=== PATIENT | male | born 1990 | race Caucasian/White ===

== ENCOUNTER 2016-07-15 11:40 | Emergency (ER) | payer OTHER ==
[2016-07-15] MEDS ORDERED: PROPARACAINE 0.5% OPHTH DROPS 15 ML BTL LEFT EYE STA (12:57)
--- NOTE | 2016-07-15 12:59 | ED ---
General Adult HPI - General Chief complaint: Eye Problems Stated complaint: FB left eye Time Seen by Provider: 07/15/16 12:51 Source: patient, RN notes reviewed Mode of arrival: ambulatory Limitations: no limitations - History of Present Illness Initial comments: Patient 25-year-old male who presents emergency room today with chief complaint of foreign body to the left eye. He does admit that 3 days ago he was working [place] house [place] and a stone came down hitting the eye and believes it started with. He states he had his brother looked into his eye was able to see a small piece of it. Patient denies any other complaints or symptoms. States tetanus is up-to-date. - Related Data Home Medications Medication Instructions Recorded Confirmed Albuterol Inhaler [Ventolin Hfa 1 - 2 puff INHALATION RT-Q6H PRN 11/24/15 Inhaler] Ibuprofen [Motrin] 600 - 800 mg PO Q6H PRN 11/24/15 11/24/15 Previous Rx's Medication Instructions Recorded Mupirocin 2% Oint [Bactroban Oint] 1 applic TOPICAL TID #1 gm 11/24/15 Sulfamethoxazole/Trimethoprim 1 each PO Q12H 10 Days 11/24/15 [Bactrim DS 800-160 mg] predniSONE 40 mg PO DAILY 3 Days 11/24/15 Tobramycin 0.3% Ophth Soln [Tobrex 1 - 2 drop LEFT EYE QID 7 Days 07/15/16 0.3% Ophth Soln] Allergies Allergy/AdvReac Type Severity Reaction Status Date / Time No Known Allergies Allergy Verified 07/15/16 11:47 Review of Systems ROS Statement: Those systems with pertinent positive or pertinent negative responses have been documented in the HPI. ROS Other: All systems not noted in ROS Statement are negative. Past Medical History Past Medical History: Asthma Additional Past Medical History / Comment(s): low immune History of Any Multi-Drug Resistant Organisms: None Reported Additional Past Surgical History / Comment(s): facial surgery as a child Past Psychological History: No Psychological Hx Reported Smoking Status: Current every day smoker Past Alcohol Use History: Occasional Past Drug Use History: Marijuana General Exam - General Exam Comments Initial Comments: General: The patient is awake and alert, in no distress, and does not appear acutely ill. Eye: Pupils are equal, round and reactive to light, extra-ocular movements are intact. No nystagmus. There is normal conjunctiva bilaterally. No signs of icterus. Ears, nose, mouth and throat: There are moist mucous membranes and no oral lesions. Neck: The neck is supple, there is no tenderness or JVD. Cardiovascular: There is a regular rate and rhythm. No murmur, rub or gallop is appreciated. Respiratory: Lungs are clear to auscultation, respirations are non-labored, breath sounds are equal. No wheezes, stridor, rales, or rhonchi. Musculoskeletal: Normal ROM, no tenderness. Strength 5/5. Sensation intact. Pulses equal bilaterally 2+. Neurological: A&O x 3. CN II-XII intact, There are no obvious motor or sensory deficits. Coordination appears grossly intact. Speech is normal. Skin: Skin is warm and dry and no rashes or lesions are noted. Psychiatric: Cooperative, appropriate mood & affect, normal judgment. Limitations: no limitations Course Vital Signs 07/15/16 11:43 Temperature 99.0 F Pulse Rate 82 Respiratory 18 Rate Blood Pressure 140/82 O2 Sat by Pulse 100 Oximetry Procedures - Procedures Initial comment: Patient's left eye was anesthetized locally with proparacaine this relieve his symptoms. Lids were everted no sign of foreign body underneath the lids were swept with cotton tip. There is a foreign body at the 5 o'clock position of the left eye. Contacted used to try to remove was unable to did use [place] brush to remove foreign body and rust ring. Patient tolerated well. Medical Decision Making - Medical Decision Making Left eye foreign body was removed here in the emergency room. He is advised follow-up with dry kiln feeder symptoms do not completely resolve the next 2 days but he will be started on antibiotics here. Advised return for any other concerns. Disposition Clinical Impression: Foreign body, eye Disposition: HOME SELF-CARE Condition: Good Instructions: Eye Foreign Body (ED) Additional Instructions: Please continue with artificial tears for comfort and use antibiotic drops as prescribed. Please use Tylenol/ibuprofen for pain as needed. Please follow-up with dry kiln feeder over the next 2 days symptoms have not completely resolved. Please return for any other concerns. Prescriptions: Tobramycin 0.3% Ophth Soln [Tobrex 0.3% Ophth Soln] 1 - 2 drop LEFT EYE QID 7 Days Referrals: None,Stated [Primary Care Provider] - 1-2 days Siddhartha Peres MD [STAFF PHYSICIAN] - 1-2 days Time of Disposition: 13:17
[2016-07-15 13:38] VITALS: BP 144/80; PULSE 80; RESP 16; TEMP 98.7
== END 2016-07-15 13:39 | disposition home or self-care (01) ==
LOC: EC 11:40
DX: T15.92XA Foreign body on external eye, part unspecified, left eye, initial encounter (principal); F17.200 Nicotine dependence, unspecified, uncomplicated; W22.8XXA Striking against or struck by other objects, initial encounter
CPT/HCPCS: 67938; 99283

== ENCOUNTER 2017-09-07 09:46 | Emergency (ER) | payer OTHER ==
[2017-09-07 10:24] VITALS: RESP 18
[2017-09-07] MEDS ORDERED: ONDANSETRON 4 MG/2 ML VIAL IVP STA (10:33)
[2017-09-07] MEDS ORDERED: diphenhydrAMINE 50 MG/ML 1 ML VIAL IVP STA (10:33)
[2017-09-07] MEDS ORDERED: SODIUM CHLORIDE 0.9% 1,000 ML IV STA ×2 (10:33→13:40)
[2017-09-07] MEDS ORDERED: MAG HYDROX/AL HYDROX/SIMETH 30 ML, HYOSCYAMINE ELIXIR 10 ML, CIMETIDINE HCL 300 MG, LID... PO STA ×4 (10:35)
--- NOTE | 2017-09-07 10:39 | ED ---
General Adult HPI - General Chief complaint: Abdominal Pain Stated complaint: VOMITING, SHAKING, POSS DEHYDRATION Time Seen by Provider: 09/07/17 10:26 Source: patient, RN notes reviewed Mode of arrival: wheelchair Limitations: no limitations - History of Present Illness Initial comments: 26-year-old male presents to the emergency department for a chief complaint of abdominal pain 3 days. Patient states he has had lower abdominal pain as well as left upper quadrant abdominal pain. Patient states pain also radiates to the back. Patient states he has been vomiting multiple times per day. Patient states he now feels dehydrated and dizzy. Patient denies any diarrhea. Patient states he ate a peanut butter and jelly sandwich morning thinking it would help but it did not. Patient was able to keep it down. Patient denies any pain with urination. Patient denies any medical history besides for asthma. Denies any abdominal surgeries. Patient has no other complaints at this time including shortness of breath, chest pain, headache, or visual changes. - Related Data Home Medications Medication Instructions Recorded Confirmed Ibuprofen [Motrin] 2,000 mg PO Q6H PRN 11/24/15 09/07/17 Previous Rx's Medication Instructions Recorded Ondansetron [Zofran ODT] 4 mg PO Q8HR PRN #15 tab 09/07/17 Allergies Allergy/AdvReac Type Severity Reaction Status Date / Time hydrocodone AdvReac Nausea & Verified 09/07/17 11:05 Vomiting Review of Systems ROS Statement: Those systems with pertinent positive or pertinent negative responses have been documented in the HPI. ROS Other: All systems not noted in ROS Statement are negative. Past Medical History Past Medical History: Asthma Additional Past Medical History / Comment(s): low immune History of Any Multi-Drug Resistant Organisms: None Reported Additional Past Surgical History / Comment(s): facial surgery as a child Past Psychological History: No Psychological Hx Reported Smoking Status: Current every day smoker Past Alcohol Use History: Occasional Past Drug Use History: Marijuana General Exam Limitations: no limitations General appearance: alert, anxious (laying in bed, no distress, anxious appearing) Head exam: Present: atraumatic, normocephalic, normal inspection Eye exam: Present: normal appearance. Absent: scleral icterus, conjunctival injection ENT exam: Present: normal exam, normal oropharynx, mucous membranes moist Neck exam: Present: normal inspection, full ROM. Absent: tenderness, meningismus, lymphadenopathy Respiratory exam: Present: normal lung sounds bilaterally. Absent: respiratory distress, wheezes, rales, rhonchi, stridor Cardiovascular Exam: Present: regular rate, normal rhythm, normal heart sounds. Absent: systolic murmur, diastolic murmur, rubs, gallop, clicks GI/Abdominal exam: Present: soft, tenderness (RLQ, epigastric, LUQ tenderess), guarding, normal bowel sounds. Absent: distended, rebound, rigid Neurological exam: Present: alert, oriented X3, CN II-XII intact Psychiatric exam: Present: normal affect, normal mood Skin exam: Present: warm, dry, intact, normal color. Absent: rash Course Vital Signs 09/07/17 09/07/17 10:20 11:29 Temperature 97.8 F 97.1 F L Pulse Rate 98 64 Respiratory 18 18 Rate Blood Pressure 138/87 144/84 O2 Sat by Pulse 99 100 Oximetry Medical Decision Making - Medical Decision Making 26-year-old male says to the emergency determine for chief complaint of abdominal pain and vomiting 3 days. Tenderness in the right lower quadrant as well as left upper quadrant and epigastric area. CBC unremarkable. CMP shows patient likely dehydrated with a creatinine of 1.6. CT shows borderline liver size with prominent fluid-filled small bowel loops in the stool in the right side of the colon which is likely enteritis. Patient given 2 L in the emergency department. Patient was also given Zofran and is feeling much better. At this time patient has been tolerating oral intake at home. He is comfortable going home and increasing fluid intake. He will be given Zofran prescription. Patient aware he is to return to the emergency department if he has any worsening symptoms. Otherwise he will follow-up with primary care in 1- 2 days. - Lab Data Result diagrams: 09/07/17 10:19 09/07/17 10:19 Lab Results 09/07/17 09/07/17 09/07/17 Range/Units 10:19 10:19 12:31 WBC 12.3 H (3.8-10.6) k/uL RBC 5.60 (4.30-5.90) m/uL Hgb 16.9 (13.0-17.5) gm/dL Hct 48.5 (39.0-53.0) % MCV 86.6 (80.0-100.0) fL MCH 30.1 (25.0-35.0) pg MCHC 34.8 (31.0-37.0) g/dL RDW 13.5 (11.5-15.5) % Plt Count 318 (150-450) k/uL Neutrophils % 78 % Lymphocytes % 15 % Monocytes % 6 % Eosinophils % 1 % Basophils % 0 % Neutrophils # 9.5 H (1.3-7.7) k/uL Lymphocytes # 1.8 (1.0-4.8) k/uL Monocytes # 0.7 (0-1.0) k/uL Eosinophils # 0.1 (0-0.7) k/uL Basophils # 0.0 (0-0.2) k/uL Sodium 134 L (137-145) mmol/L Potassium 4.8 (3.5-5.1) mmol/L Chloride 98 (98-107) mmol/L Carbon Dioxide 21 L (22-30) mmol/L Anion Gap 15 mmol/L BUN 40 H (9-20) mg/dL Creatinine 1.60 H (0.66-1.25) mg/dL Est GFR (CKD-EPI)AfAm 68 (>60 ml/min/1.73 sqM) Est GFR (CKD-EPI)NonAf 59 (>60 ml/min/1.73 sqM) Glucose 95 (74-99) mg/dL Calcium 10.6 H (8.4-10.2) mg/dL Total Bilirubin 1.1 (0.2-1.3) mg/dL AST 65 H (17-59) U/L ALT 49 (21-72) U/L Alkaline Phosphatase 59 (38-126) U/L Total Protein 8.2 (6.3-8.2) g/dL Albumin 5.2 H (3.5-5.0) g/dL Amylase 61 (30-110) U/L Lipase 59 (23-300) U/L Urine Color Yellow Urine Appearance Clear (Clear) Urine pH 6.0 (5.0-8.0) Ur Specific [place] >1.050 H (1.001-1.035) Urine Protein Trace H (Negative) Urine Glucose (UA) Negative (Negative) Urine Ketones 2+ H (Negative) Urine Blood Negative (Negative) Urine Nitrite Negative (Negative) Urine Bilirubin Negative (Negative) Urine Urobilinogen <2.0 (<2.0) mg/dL Ur Leukocyte Esterase Negative (Negative) Disposition Clinical Impression: Gastroenteritis, Abdominal pain Disposition: HOME SELF-CARE Condition: Good Instructions: Abdominal Pain (ED) Additional Instructions: Please take Zofran for nausea. Please be sure to drink plenty of fluids. Follow up with primary care in 1-2 days. Return to the emergency department if you have any worsening symptoms Prescriptions: Ondansetron [Zofran ODT] 4 mg PO Q8HR PRN #15 tab PRN Reason: Nausea Is patient prescribed a controlled substance at d/c from ED?: No Referrals: Hank Mehta MD [STAFF PHYSICIAN] - 1-2 days Time of Disposition: 13:46
[2017-09-07 11:11] LABS: Basophils % (A) 0 %; Eosinophils # (A) 0.1 k/uL (0-0.7); Eosinophils % (A) 1 %; HCT 48.5 % (39.0-53.0); HGB 16.9 gm/dL (13.0-17.5); Lymphocytes # (A) 1.8 k/uL (1.0-4.8); Lymphocytes % (A) 15 %; MCH 30.1 pg (25.0-35.0); MCHC 34.8 g/dL (31.0-37.0); MCV 86.6 fL (80.0-100.0); Mean Platelet Volume 7.6; Monocytes # (A) 0.7 k/uL (0-1.0); Monocytes % (A) 6 %; Neutrophils # (A) 9.5 k/uL (1.3-7.7); Neutrophils % (A) 78 %; Platelet Count 318 k/uL (150-450); RDW 13.5 % (11.5-15.5); WBC 12.3 k/uL (3.8-10.6)
[2017-09-07 11:24] LABS: Albumin 5.2 g/dL (3.5-5.0); Calcium 10.6 mg/dL (8.4-10.2); Potassium 4.8 mmol/L (3.5-5.1); Total Bilirubin 1.1 mg/dL (0.2-1.3); Total Protein 8.2 g/dL (6.3-8.2)
[2017-09-07 12:34] LABS: Appearance,Urine Clear (Clear); Bilirubin,Urine Negative (Negative); Blood,Urine Negative (Negative); Color,Urine Yellow; Glucose,Urine (UA) Negative (Negative); Ketones,Urine 2+ (Negative); Leukocyte Esterase,Urine Negative (Negative); Nitrite,Urine Negative (Negative); Protein,Urine Trace (Negative); Urobilinogen,Urine <2.0 mg/dL (<2.0)
[2017-09-07 12:55] LABS: Specific Gravity,Urine >1.050 (1.001-1.035)
--- NOTE | 2017-09-07 13:17 | CT ---
EXAMINATION TYPE: CT abdomen pelvis w con DATE OF EXAM: 09/07/2017 COMPARISON: 03/09/2015 HISTORY: 26-year-old male with abdominal pain, vomiting, shaking, possible dehydration TECHNIQUE: Contiguous axial scanning of the abdomen and pelvis following administration of 100 ml Iso maxi 300 IV contrast. Delayed images through the kidneys and coronal/sagittal reconstructions perform ed. CT DLP: 965 mGycm Automated exposure control for dose reduction was used. FINDINGS: The heart is normal size without pericardial effusion. Lung bases clear without pleural effusion. Liver borderline enlarged measuring 17.8 cm craniocaudal. There may be some underlying fatty infiltra tion. No focal liver lesion seen. Gallbladder, adrenal glands, kidneys, spleen, and pancreas show no gross abnormal body. No dilated small bowel, free fluid, or free air. Scattered nonenlarged mesenteric lymph nodes. Simila r borderline sized in the right lower quadrant measuring 6 mm. Some prominent fluid filled small bowel loops throughout the abdomen and in the pelvis. There is also liquid stool in the right side of the colon. No significant stool burden. No pericolonic inflammator y change. Normal caliber appendix. Mild circumferential bladder wall thickening. No abnormal fluid collection the pelvis or pelvic lymph adenopathy. Bones: No osseous destructive process. IMPRESSION: 1. BORDERLINE LIVER SIZE (17.8 CM). SUSPECT UNDERLYING FATTY INFILTRATION. 2. SOME PROMINENT FLUID-FILLED SMALL BOWEL LOOPS IN THE STOOL IN THE RIGHT SIDE OF THE COLON. CORRELA TE FOR ENTERITIS. 3. MILD CIRCUMFERENTIAL BLADDER WALL THICKENING. CORRELATE TO EXCLUDE CYSTITIS.
[2017-09-07 14:49] VITALS: BP 134/82; PULSE 69; TEMP 98.2
== END 2017-09-07 14:50 | disposition home or self-care (01) ==
LOC: EC 09:46
DX: K52.9 Noninfective gastroenteritis and colitis, unspecified (principal); M54.9 Dorsalgia, unspecified; F17.200 Nicotine dependence, unspecified, uncomplicated; Z88.5 Allergy status to narcotic agent
CPT/HCPCS: 36415; 80053; 82150; 83690; 85025; 81003; 74177; 99284; 96374; 96375; 96361 ×2; J1200; J2405; Q9967

== ENCOUNTER 2022-05-14 08:23 | Emergency (ER) | payer OTHER ==
[2022-05-14 08:27] VITALS: BP 140/84; PULSE 66; RESP 20; TEMP 98.5
[2022-05-14] MEDS ORDERED: ACET/COD 300 MG/30 MG STARTER PACK 6 TAB BTL PO STA (08:34)
[2022-05-14] MEDS ORDERED: AMOXIC-POT CLAV 875MG STARTER PACK 2 TAB BTL PO STA (08:35)
--- NOTE | 2022-05-14 08:36 | ED ---
ENT HPI - General Chief complaint: Dental/Oral Stated complaint: Tooth pain Time Seen by Provider: 05/14/22 08:29 Source: patient, RN notes reviewed Mode of arrival: ambulatory Limitations: no limitations - History of Present Illness Initial comments: This a 31-year-old male presents emergency Department chief complaint left lower abdominal pain. Patient states he had a piece of the tooth break off. Patient states she does have very poor dentition. States pain is unbearable today's had a history of dental infections also. Patient only ALLERGY is hydrocodone. Patient denies any difficulty swallowing no fevers chills no other associated symptoms. - Related Data Home Medications Medication Instructions Recorded Confirmed Ibuprofen [Motrin] 2,000 mg PO Q6H PRN 11/24/15 09/07/17 Previous Rx's Medication Instructions Recorded Ondansetron [Zofran ODT] 4 mg PO Q8HR PRN #15 tab 09/07/17 Amoxic-Pot Clav 875-125Mg 1 tab PO Q12HR #20 tab 05/14/22 [Augmentin 875-125] Ibuprofen [Motrin] 600 mg PO Q8HR PRN #20 tab 05/14/22 Allergies Allergy/AdvReac Type Severity Reaction Status Date / Time hydrocodone AdvReac Nausea & Verified 05/14/22 08:27 Vomiting Review of Systems ROS Statement: Those systems with pertinent positive or pertinent negative responses have been documented in the HPI. ROS Other: All systems not noted in ROS Statement are negative. Past Medical History Past Medical History: Asthma Additional Past Medical History / Comment(s): low immune History of Any Multi-Drug Resistant Organisms: None Reported Additional Past Surgical History / Comment(s): facial surgery as a child Past Psychological History: No Psychological Hx Reported Smoking Status: Current every day smoker Past Alcohol Use History: Occasional Past Drug Use History: Marijuana General Exam Limitations: no limitations General appearance: alert, in no apparent distress Head exam: Present: atraumatic, normocephalic, normal inspection Eye exam: Present: normal appearance, PERRL, EOMI. Absent: scleral icterus, conjunctival injection, periorbital swelling ENT exam: Present: mucous membranes moist, TM's normal bilaterally, normal external ear exam. Absent: normal oropharynx (Edentulous, there is dental fracture left lower there is mild swelling, mild erythema no drainable abscess.) Neck exam: Present: normal inspection, full ROM. Absent: tenderness, meningismus, lymphadenopathy Respiratory exam: Present: normal lung sounds bilaterally. Absent: respiratory distress, wheezes, rales, rhonchi, stridor Cardiovascular Exam: Present: regular rate, normal rhythm, normal heart sounds. Absent: systolic murmur, diastolic murmur, rubs, gallop, clicks Course Vital Signs 05/14/22 08:25 Temperature 98.5 F Pulse Rate 66 Respiratory 20 Rate Blood Pressure 140/84 O2 Sat by Pulse 99 Oximetry Medical Decision Making - Medical Decision Making Was pt. sent in by a medical professional or institution (, TEA, LOCATOR, urgent care, hospital, or [facility]...) When possible be specific @ -No Did you speak to anyone other than the patient for history (EMS, parent, family, police, friend...)? What history was obtained from this source @ -No Did you review nursing and triage notes (agree or disagree)? Why? @ -I reviewed and agree with nursing and triage notes Were old charts reviewed (outside hosp., previous admission, EMS record, old EKG, old radiological studies, urgent care reports/EKG's, [facility] records)? Report findings @ -No old charts were reviewed Differential Diagnosis (chest pain, altered mental status, abdominal pain women, abdominal pain men, vaginal bleeding, weakness, fever, dyspnea, syncope, headache, dizziness, GI bleed, back pain, seizure, CVA, palpatations, mental health, musculoskeletal)? @ -[Dental infection, dental fracture, dental caries, dental abscess EKG interpreted by me (3pts min.). @ -None X-rays interpreted by me (1pt min.). @ -None done CT interpreted by me (1pt min.). @ -None done U/S interpreted by me (1pt. min.). @ -None done What testing was considered but not performed or refused? (CT, X-rays, U/S, labs)? Why? @ -None What meds were considered but not given or refused? Why? @ -None Did you discuss the management of the patient with other professionals (professionals i.e. TEA Goznalez, LOCATOR, lab, RT, psych nurse, social security specialist, customer program specialist, teacher, cavalry officer, skilled nursing case manager)? Give summary @ -No Was smoking cessation discussed for >3mins.? @ -No Was critical care preformed (if so, how long)? @ -No Were there social determinants of health that impacted care today? How? (Homelessness, low income, unemployed, alcoholism, drug addiction, transportation, low edu. Level, literacy, decrease access to med. care, nursing home, rehab)? @ -No Was there de-escalation of care discussed even if they declined (Discuss DNR or withdrawal of care, Hospice)? DNR status @ -No What co-morbidities impacted this encounter? (DM, HTN, Smoking, COPD, CAD, Cancer, CVA, ARF, Chemo, Hep., AIDS, mental health diagnosis, sleep apnea, morbid obesity)? @ -None Was patient admitted / discharged? Hospital course, mention meds given and route, prescriptions, significant lab abnormalities, going to OR and other pertinent info. @ -Discharge patient given initial dose of antibiotics, patient hasn Dental fracture, dental infection was started on Augmentin, provided pain control patient advised to follow-up with dentist. Undiagnosed new problem with uncertain prognosis? @ -No Drug Therapy requiring intensive monitoring for toxicity (Heparin, Nitro, Insulin, Cardizem)? @ -No Were any procedures done? @ -No Diagnosis/symptom? @ -Toothache Acute, or Chronic, or Acute on Chronic? @ -Acute Uncomplicated (without systemic symptoms) or Complicated (systemic symptoms)? @ -Uncomplicated Side effects of treatment? @ -No Exacerbation, Progression, or Severe Exacerbation? @ -No Poses a threat to life or bodily function? How? (Chest pain, [place], [place], pneumonia, PE, COPD, DKA, ARF, appy, cholecystitis, CVA, Diverticulitis, Homicidal, Suicidal, threat to staff... and all critical care pts) @ -No Disposition Clinical Impression: Fracture of tooth, Impacted molar Disposition: HOME SELF-CARE Condition: Stable Instructions (If sedation given, give patient instructions): Toothache (ED) Additional Instructions: Please return to the Emergency Department if symptoms worsen or any other concerns. Prescriptions: Amoxic-Pot Clav 875-125Mg [Augmentin 875-125] 1 tab PO Q12HR #20 tab Ibuprofen [Motrin] 600 mg PO Q8HR PRN #20 tab PRN Reason: Pain Is patient prescribed a controlled substance at d/c from ED?: No Referrals: None,Stated [Primary Care Provider] - 1-2 days Time of Disposition: 08:36
== END 2022-05-14 08:49 | disposition home or self-care (01) ==
LOC: EC 08:23
DX: S02.5XXA Fracture of tooth (traumatic), initial encounter for closed fracture (principal); K01.1 Impacted teeth; J45.909 Unspecified asthma, uncomplicated; F17.200 Nicotine dependence, unspecified, uncomplicated; F12.90 Cannabis use, unspecified, uncomplicated; Z88.8 Allergy status to other drugs, medicaments and biological substances; Z79.899 Other long term (current) drug therapy; X58.XXXA Exposure to other specified factors, initial encounter
CPT/HCPCS: 99282